=== PATIENT | male | born 1990 | race Caucasian/White ===

== ENCOUNTER 2021-12-24 21:27 | Emergency (ER) | payer BC ==
[~2021-12-24] VITALS: Ht 180.3 cm; Wt 81.6 kg
[2021-12-24] MEDS ORDERED: ZYRTEC10 M3 PO (21:33)
[2021-12-24] MEDS ORDERED: DICLOFENAC SODI75 MG PO (22:27)
== END 2021-12-24 22:36 | disposition home or self-care (01) ==
LOC: ER 21:27
DX: S93.402A Sprain of unspecified ligament of left ankle, initial encounter (principal); W18.30XA Fall on same level, unspecified, initial encounter; Y93.9 Activity, unspecified; Y92.480 Sidewalk as the place of occurrence of the external cause; Y99.9 Unspecified external cause status